=== PATIENT | male | born 1970 | race Asian ===

== ENCOUNTER 2016-12-15 18:14 | Emergency (ER) | payer MEDICAID ==
[~2016-12-15] VITALS: Ht 172.7 cm; Wt 68.0 kg
[2016-12-15 20:12] LABS: Basophils # (auto) 0.1 uL; Eosinophils # (auto) 0.1 uL; Hemoglobin 13.3 g/dL (13.5-17.5); Lymphocytes # (auto) 3.1 uL; Monocytes # (auto) 0.3 uL
[2016-12-15 20:14] LABS: Basophils % (auto) 1.4 % (0.0-2.0); Eosinophils % (auto) 1.5 % (0.0-7.0); Hematocrit 38.1 % (41.0-53.0); Lymphocytes % (auto) 53.8 % (10.0-50.0); Mean Corpuscular Hemoglobin 38.8 pg (28.0-32.0); Mean Corpuscular Hgb Conc. 34.9 g/dL (32.0-36.0); Mean Corpuscular Volume 111.1 fL (80.0-100.0); Monocytes % (auto) 5.2 % (0.0-12.0); Neutrophils # (auto) 2.2 uL; Neutrophils % (auto) 38.1 % (37.0-80.0); Nucleated Red Blood Cells % 0.1 %; Platelet Count (auto) 70 10^3/uL (140-450); Red Blood Cells 3.43 10^6/uL (4.5-5.90); Red Cell Distribution Width 13.3 % (11.8-14.3); White Blood Cell 5.8 10^3/uL (4.4-10.8)
[2016-12-15 20:23] LABS: Alanine Aminotransferase 61 U/L (16-61); Albumin 2.9 g/dL (3.4-5.0); Alkaline Phosphatase 196 U/L (45-117); Anion Gap 14 (5-15); Aspartate Aminotransferase 179 U/L (15-37); BUN/Creatinine Ratio 21.2; Bilirubin, Total 1.5 mg/dL (0.2-1.0); Blood Urea Nitrogen 11 mg/dL (7-18); Calcium 7.3 mg/dL (8.5-10.1); Carbon Dioxide 23 mmol/L (21-32); Chloride 110 mmol/L (98-107); GFR African American 219 mL/min; GFR Non-African American 181 mL/min; Glucose 99 mg/dL (74-106); Sodium 147 mmol/L (136-145)
[2016-12-15] MEDS ORDERED: POTASSIUM CHL 10% (20 MEQ/15ML) 15ml ORAL SOLN PO ONE (21:30)
[2016-12-15] MEDS ORDERED: SODIUM CHLORIDE 0.9% 1,000 ML IV ONE ×2 (21:30)
[2016-12-15] MEDS ORDERED: THIAMINE HCL 100 MG/ML 2ML VIAL IV ONE (22:30)
[2016-12-16 01:15] VITALS: BP 107/63
== END 2016-12-16 01:30 | disposition home or self-care (01) ==
LOC: ER 18:17
DX: F10.129 Alcohol abuse with intoxication, unspecified (principal); E87.6 Hypokalemia
CPT/HCPCS: 36415; 71010; 80053; 80320; 84484; 85025; 96361; 96374; 99285; J3411; J7030

== ENCOUNTER 2017-06-10 17:01 | Observation (INO) | payer MEDICAID ==
[~2017-06-10] VITALS: Ht 177.8 cm; Wt 72.6 kg
[2017-06-10] MEDS ORDERED: SODIUM CHLORIDE 0.9% 1,000 ML IVB ONE (17:34)
[2017-06-10 17:50] LABS: Basophils # (auto) 0 uL; Basophils % (auto) 0.3 % (0.0-2.0); Eosinophils # (auto) 0.1 uL; Monocytes # (auto) 0.3 uL; Monocytes % (auto) 5.1 % (0.0-12.0); Neutrophils % (auto) 74.8 % (37.0-80.0); Nucleated Red Blood Cells % 0.1 %; White Blood Cell 5.4 10^3/uL (4.4-10.8)
[2017-06-10 17:52] LABS: Eosinophils % (auto) 1.2 % (0.0-7.0); Hematocrit 37.8 % (41.0-53.0); Hemoglobin 13.1 g/dL (13.5-17.5); Lymphocytes % (auto) 18.6 % (10.0-50.0); Mean Corpuscular Hgb Conc. 34.6 g/dL (32.0-36.0); Mean Corpuscular Volume 101.3 fL (80.0-100.0); Red Blood Cells 3.74 10^6/uL (4.5-5.90); Red Cell Distribution Width 14.2 % (11.8-14.3)
[2017-06-10 17:56] LABS: Platelet Count (auto) 62 10^3/uL (140-450)
[2017-06-10 17:59] LABS: INR 1.04 (0.9-1.15); Partial Thromboplastin Time 25.4 sec (22.64-33.71); Prothrombin Time 11.3 sec (9.37-12.3)
[2017-06-10 18:05] LABS: Alanine Aminotransferase 40 U/L (16-61); Albumin 3.2 g/dL (3.4-5.0); Alkaline Phosphatase 157 U/L (45-117); Anion Gap 11 (5-15); Aspartate Aminotransferase 42 U/L (15-37); Bilirubin, Total 0.8 mg/dL (0.2-1.0); Blood Alcohol < 3.0 mg/dL (0-5); Blood Urea Nitrogen 6 mg/dL (7-18); Calcium 7.8 mg/dL (8.5-10.1); Carbon Dioxide 25 mmol/L (21-32); Chloride 106 mmol/L (98-107); GFR African American 122 mL/min; GFR Non-African American 101 mL/min; Glucose 138 mg/dL (74-106); Potassium 3.5 mmol/L (3.5-5.1); Sodium 142 mmol/L (136-145); Total Protein 6.3 g/dL (6.4-8.2)
[2017-06-10 18:47] LABS: Urine WBC None Seen /hpf (0 - 3)
[2017-06-10 19:12] LABS: Urine Bacteria NONE SEEN /hpf (None Seen); Urine Blood Negative /uL (Negative); Urine Specific Gravity 1.005 (1.001-1.035)
[2017-06-10 19:17] LABS: Alcohol, Urine < 3.0 mg/dL (0-5); Amphetamine Screen, Urine NEGATIVE (NEGATIVE); Barbiturate Scree,Urine NEGATIVE (NEGATIVE); Benzodiazephine Screen, Urine NEGATIVE (NEGATIVE); Cannabinoid Screen, Urine NEGATIVE (NEGATIVE); Cocaine Screen, Urine NEGATIVE (NEGATIVE); Opiate Scree,Urine NEGATIVE (NEGATIVE); Phencyclidine Screen, Urine NEGATIVE (NEGATIVE)
[2017-06-10 22:47] VITALS: BP 146/82
== END 2017-06-10 22:55 | disposition home or self-care (01) | DRG 815 ==
LOC: EDBD 17:01 → ER 17:01 → OVERFLOW 17:35 → ER 22:55
PROVIDERS: ADMIT Family Medicine; ATTEND Family Medicine
DX: T67.5XXA Heat exhaustion, unspecified, initial encounter (principal); D69.6 Thrombocytopenia, unspecified; I10 Essential (primary) hypertension; E11.9 Type 2 diabetes mellitus without complications; D64.9 Anemia, unspecified; R41.0 Disorientation, unspecified; X30.XXXA Exposure to excessive natural heat, initial encounter
CPT/HCPCS: 36415; 70450; 71045; 80053; 80307; 80320; 81001; 82962; 83735; 84484; 85025; 85379; 85610; 85730; 93005; 96360; 99285; G0378; J7030

== ENCOUNTER 2017-07-01 09:31 | Emergency (ER) | payer MEDICAID ==
[~2017-07-01] VITALS: Ht 172.7 cm; Wt 90.7 kg
[2017-07-01] MEDS ORDERED: SODIUM CHLORIDE 0.9% 1,000 ML IV ONE ×2 (10:18)
[2017-07-01 10:27] LABS: Basophils # (auto) 0 uL; Eosinophils # (auto) 0 uL; Hemoglobin 8.9 g/dL (13.5-17.5); Lymphocytes # (auto) 0.9 uL; Monocytes # (auto) 0.2 uL
[2017-07-01] MEDS ORDERED: THIAMINE 100mg/ml INJ (200mg/2ml VIAL) IV ONE (10:30)
[2017-07-01 10:31] LABS: Basophils % (auto) 1.4 % (0.0-2.0); Eosinophils % (auto) 1.5 % (0.0-7.0); Hematocrit 25.5 % (41.0-53.0); Lymphocytes % (auto) 34.7 % (10.0-50.0); Mean Corpuscular Hemoglobin 35.4 pg (28.0-32.0); Mean Corpuscular Hgb Conc. 34.9 g/dL (32.0-36.0); Mean Corpuscular Volume 101.5 fL (80.0-100.0); Monocytes % (auto) 8.1 % (0.0-12.0); Neutrophils # (auto) 1.5 uL; Neutrophils % (auto) 54.3 % (37.0-80.0); Nucleated Red Blood Cells % 0.3 %; Platelet Count (auto) 77 10^3/uL (140-450); Red Blood Cells 2.51 10^6/uL (4.5-5.90); Red Cell Distribution Width 13.7 % (11.8-14.3); White Blood Cell 2.7 10^3/uL (4.4-10.8)
[2017-07-01 11:28] LABS: Acetaminophen < 2.0 ug/mL (10-30); Salicylate < 1.7 mg/dL (2.8-20.0)
[2017-07-01 11:32] LABS: Albumin 3.1 g/dL (3.4-5.0); BUN/Creatinine Ratio 24.2; Bilirubin, Total 2.4 mg/dL (0.2-1.0); Potassium 4.1 mmol/L (3.5-5.1); Total Protein 6.4 g/dL (6.4-8.2)
[2017-07-02 00:05] LABS: Amphetamine Screen, Urine NEGATIVE (NEGATIVE); Barbiturate Scree,Urine NEGATIVE (NEGATIVE); Benzodiazephine Screen, Urine NEGATIVE (NEGATIVE); Cannabinoid Screen, Urine NEGATIVE (NEGATIVE); Cocaine Screen, Urine NEGATIVE (NEGATIVE); Opiate Scree,Urine NEGATIVE (NEGATIVE); Phencyclidine Screen, Urine NEGATIVE (NEGATIVE)
[2017-07-02] MEDS ORDERED: LORazepam 0.5 MG TAB PO PRN (09:30)
[2017-07-02] MEDS: QUEtiapine FUMARATE 25 MG TAB PO SCH (21:58)
[2017-07-02] MEDS: lamoTRIgine 25 MG TAB PO SCH (21:58)
[2017-07-03] MEDS ORDERED: LORazepam 0.5 MG TAB PO PRN (08:15)
[2017-07-03] MEDS: MIRTAZAPINE 30 MG TAB PO SCH (10:06)
[2017-07-03] MEDS: lamoTRIgine 25 MG TAB PO SCH (22:00)
[2017-07-03] MEDS: QUEtiapine FUMARATE 25 MG TAB PO SCH (22:00)
[2017-07-04] MEDS: MIRTAZAPINE 30 MG TAB PO SCH (09:57)
[2017-07-04] MEDS ORDERED: lamoTRIgine 25 MG TAB ONE (22:40)
[2017-07-04] MEDS ORDERED: QUEtiapine FUMARATE 25 MG TAB ONE (22:40)
[2017-07-04] MEDS: lamoTRIgine 25 MG TAB PO SCH (22:43)
[2017-07-04] MEDS: QUEtiapine FUMARATE 25 MG TAB PO SCH (22:43)
[2017-07-05 07:15] VITALS: BP 118/68
== END 2017-07-05 08:47 | disposition home or self-care (01) ==
LOC: ER 09:31 → EDBD 09:31 → ER 07-05 08:47
DX: R41.82 Altered mental status, unspecified (principal); E11.9 Type 2 diabetes mellitus without complications; I10 Essential (primary) hypertension; F10.129 Alcohol abuse with intoxication, unspecified; Y90.9 Presence of alcohol in blood, level not specified
CPT/HCPCS: 36415; 71045; 80053; 80307; 80320; 80329; 85025; 96374; 99285; J3411; J7030

== ENCOUNTER 2017-07-31 21:47 | Emergency (ER) | payer MEDICAID ==
[~2017-07-31] VITALS: Ht 182.9 cm; Wt 74.8 kg
[2017-08-01] MEDS ORDERED: SODIUM CHLORIDE 0.9% 1,000 ML IVB ONE (07:46)
[2017-08-01] MEDS ORDERED: THIAMINE 100mg/ml INJ (200mg/2ml VIAL) IV ONE (08:00)
[2017-08-01 08:51] LABS: Basophils # (auto) 0.1 uL; Eosinophils # (auto) 0 uL; Eosinophils % (auto) 0.1 % (0.0-7.0); Hemoglobin 15.6 g/dL (13.5-17.5); Neutrophils # (auto) 3.1 uL; Red Blood Cells 4.24 10^6/uL (4.5-5.90)
[2017-08-01 08:52] LABS: Basophils % (auto) 1.3 % (0.0-2.0); Lymphocytes # (auto) 1.5 uL; Lymphocytes % (auto) 28.7 % (10.0-50.0); Mean Corpuscular Hemoglobin 36.9 pg (28.0-32.0); Mean Corpuscular Hgb Conc. 36.4 g/dL (32.0-36.0); Mean Corpuscular Volume 101.4 fL (80.0-100.0); Monocytes # (auto) 0.5 uL; Monocytes % (auto) 9.7 % (0.0-12.0); Neutrophils % (auto) 60.2 % (37.0-80.0); Nucleated Red Blood Cells % 0.3 %; Platelet Count (auto) 176 10^3/uL (140-450); Red Cell Distribution Width 15.6 % (11.8-14.3); White Blood Cell 5.2 10^3/uL (4.4-10.8)
[2017-08-01 09:13] LABS: Alkaline Phosphatase 206 U/L (45-117); Anion Gap 17 (5-15); BUN/Creatinine Ratio 28.6; Bilirubin, Total 2.9 mg/dL (0.2-1.0); Blood Urea Nitrogen 20 mg/dL (7-18); Calcium 7.1 mg/dL (8.5-10.1); Carbon Dioxide 21 mmol/L (21-32); Chloride 96 mmol/L (98-107); GFR African American 155 mL/min; GFR Non-African American 128 mL/min; Glucose 136 mg/dL (74-106); Potassium 3.9 mmol/L (3.5-5.1); Sodium 134 mmol/L (136-145); Total Protein 6.8 g/dL (6.4-8.2)
[2017-08-01 09:21] LABS: Aspartate Aminotransferase 150 U/L (15-37)
[2017-08-01 09:51] LABS: Alanine Aminotransferase 110 U/L (16-61)
[2017-08-01 10:45] VITALS: BP 133/85
== END 2017-08-01 13:51 | disposition home or self-care (01) ==
LOC: ER 21:47 → EDBD 21:47 → ER 08-01 13:49
DX: F10.129 Alcohol abuse with intoxication, unspecified (principal); K75.9 Inflammatory liver disease, unspecified; R11.2 Nausea with vomiting, unspecified; E11.9 Type 2 diabetes mellitus without complications; I10 Essential (primary) hypertension
CPT/HCPCS: 36415; 71046; 76705; 80053; 84484; 85025; 96361; 96374; 99285; J3411

== ENCOUNTER 2017-10-01 08:45 | Emergency (ER) | payer MEDICAID ==
[~2017-10-01] VITALS: Ht 172.7 cm; Wt 72.6 kg
[2017-10-01 09:11] VITALS: BP 101/60
[2017-10-01 10:11] LABS: Basophils # (auto) 0 uL; Basophils % (auto) 0.3 % (0.0-2.0); Eosinophils # (auto) 0 uL; Eosinophils % (auto) 0.7 % (0.0-7.0); Hematocrit 31.6 % (41.0-53.0); Hemoglobin 10.9 g/dL (13.5-17.5); Lymphocytes % (auto) 20.8 % (10.0-50.0); Mean Corpuscular Hemoglobin 40.4 pg (28.0-32.0); Mean Corpuscular Hgb Conc. 34.6 g/dL (32.0-36.0); Mean Corpuscular Volume 116.8 fL (80.0-100.0); Monocytes # (auto) 0.4 uL; Monocytes % (auto) 7.7 % (0.0-12.0); Neutrophils # (auto) 3.3 uL; Neutrophils % (auto) 70.5 % (37.0-80.0); Nucleated Red Blood Cells % 0.1 %; Platelet Count (auto) 121 10^3/uL (140-450); Red Cell Distribution Width 16.7 % (11.8-14.3); White Blood Cell 4.6 10^3/uL (4.4-10.8)
[2017-10-01 10:36] LABS: Albumin 2.5 g/dL (3.4-5.0); BUN/Creatinine Ratio 9.9; Potassium 4.3 mmol/L (3.5-5.1)
[2017-10-01 10:39] LABS: Bilirubin, Total 5.4 mg/dL (0.2-1.0); Total Protein 6.8 g/dL (6.4-8.2)
== END 2017-10-01 11:17 | disposition left against medical advice (07) ==
LOC: ER 08:45
DX: R79.9 Abnormal finding of blood chemistry, unspecified (principal); Z53.21 Procedure and treatment not carried out due to patient leaving prior to being seen by health care provider
CPT/HCPCS: 36415; 80053; 82140; 85025

== ENCOUNTER 2018-02-12 09:22 | Emergency (ER) | payer MEDICAID ==
[~2018-02-12] VITALS: Ht 165.1 cm; Wt 74.8 kg
[2018-02-12 09:22] VITALS: BP 0/0
[2018-02-12] MEDS ORDERED: EPINEPHrine HCL 1 MG/10 ML SYRG IV ONE (09:23)
[2018-02-12] MEDS ORDERED: CALCIUM CHLOR(10%) 100MG/ML 10ML SYRINGE IV ONE (09:23)
[2018-02-12] MEDS ORDERED: SODIUM BICARBONATE 8.4% INJ 50ML SYRINGE IV ONE (09:23)
== END 2018-02-12 14:10 | disposition expired ==
LOC: EDBD 09:22 → ER 09:22
DX: I46.9 Cardiac arrest, cause unspecified (principal); E11.9 Type 2 diabetes mellitus without complications; I10 Essential (primary) hypertension
CPT/HCPCS: 92950; 99285; J0171